=== PATIENT | female | born 1990 | race Caucasian/White ===

== ENCOUNTER 2017-02-04 22:42 | Emergency (ER) | payer MEDICAID, OTHER ==
[2017-02-04 22:50] VITALS: BP 114/99; PULSE 100; RESP 18; TEMP 98.2; O2SAT 96
--- NOTE | 2017-02-04 23:13 | EDPHY ---
H & P Stated Complaint: Rash, Itching to right arm. Time Seen by Provider: 02/04/17 22:59 HPI/ROS: Chief complaint: Right forearm pain and swelling History of present illness: This is a 26-year-old female who presents to the emergency department for right forearm pain and swelling. Patient states she believes is secondary to injecting heroin into her vein in her right elbow region. She states she had a syringe needle in the bottom of her purse that got covered with broke and crackers. When she roma back the syringe plunger to fill it with her when she believes some of the cracked material actually got into this range and when she injected it potentially injected the cracker material into her pain. She has had pain and swelling in her right arm since then. She has noted a slight red rash. Symptoms appear to be improving. She denies other associated signs or symptoms including no fevers, no cough, no shortness of breath, no chest pain. - Personal History LMP (Females 10-55): Over 28 Days Ago Current Tetanus/Diphtheria Vaccine: Yes Current Tetanus Diphtheria and Acellular Pertussis (TDAP): Yes - Medical/Surgical History Hx Asthma: No Hx Chronic Respiratory Disease: No Hx Diabetes: No Hx Cardiac Disease: No Hx Renal Disease: No Hx Cirrhosis: No Hx Alcoholism: No Hx HIV/AIDS: No Hx Splenectomy or Spleen Trauma: No Other PMH: PMH: Denies - Social History Smoking Status: Light smoker - Physical Exam Exam: General Appearance: Alert, nontoxic. Eyes: Pupils equal and round no injection. Respiratory: Chest is non tender, lungs are clear to auscultation. Cardiovascular: Regular rate and rhythm noted. Radial pulses 2+ bilaterally. Capillary refill is brisk in all digits of the right hand. Musculoskeletal: Neck is supple and non tender. Patient is moving her right upper extremity in all joints all quintero without difficulty. Skin: No significant rash noted to the right arm. Constitutional: Initial Vital Signs Temperature (C) 36.8 C 02/04/17 22:46 Heart Rate 100 02/04/17 22:46 Respiratory Rate 18 02/04/17 22:46 Blood Pressure 114/99 H 02/04/17 22:46 O2 Sat (%) 96 02/04/17 22:46 O2 Delivery Mode Room Air Allergies/Adverse Reactions: No Known Allergies Allergy (Unverified 02/04/17 22:50) Home Medications: Medication Instructions Recorded NK [No Known Home Meds] 02/04/17 Medical Decision Making ED Course/Re-evaluation: Patient discussed with my secondary supervising physician Dr. Brendon Bunch. Patient presents to the emergency department for right arm pain after injecting IV drugs that might have been contaminated. Right arm is neurovascularly intact. She has no other associated signs or symptoms. At this time I do not believe there is anything more to do. We have discussed closely monitoring her arm having gone over signs of infection or neurovascular compromise or if she other symptoms such as cough, trouble breathing, chest pain, fever or other signs or symptoms she should return immediately to the emergency room for recheck. Departure - Departure Disposition: Home, Routine, Self-Care Clinical Impression: Intravenous drug abuse Condition: Good Instructions: Narcotic Abuse (ED) Additional Instructions: Follow-up with a primary care doctor for recheck If symptoms worsen or new symptoms develop return to the emergency room for recheck Referrals: NONE *PRIMARY CARE P,. [Primary Care Provider] - As per Instructions [facility],. [Clinic] - As per Instructions
== END 2017-02-04 23:28 | disposition home or self-care (01) ==
DX: F19.10 Other psychoactive substance abuse, uncomplicated (principal); F17.200 Nicotine dependence, unspecified, uncomplicated